=== PATIENT | male | born 1950 | race Caucasian/White ===

== ENCOUNTER 2023-10-01 10:40 | Day surgery (SDC) | payer OTHER, SELFPAY ==
[2023-10-01] VITALS (11 sets, daily range): BP systolic 111–165; BP diastolic 43–94; BMI 20.7
[2023-10-01] MEDS: NSS 196 ML IV (11:47)
--- NOTE | 2023-10-01 13:18 | ITS.CL.CATH ---
Pharmacy Resource Tech - Catheterization
Cardiac Catheterization
Procedure Report:
CARDIAC CATHETERIZATION REPORT
Date of Procedure: 10/01/2023
Referring: Albino Acuña DO
Indication: Symptomatic severe aortic stenosis
HEMODYNAMIC DATA
AO: 141/53
LV: 195/14
There is a mean gradient of 54 mmHg across the aortic valve
LEFT VENTRICULOGRAPHY: Not performed
CORONARY ANGIOGRAPHY
Dominance: Right
Left Main: Normal
LAD: Normal
Circumflex: A large ramus intermedius branch is normal. The circumflex is angiographically normal
RCA: Mild luminal irregularities
Closure Device: None-the procedure was performed via the right radial artery. The Ismael's test was normal prior to the procedure.
Radiation (mGy): 186
DAP (cm2.Gy): 18.5
Fluoroscopy time: 3.9 minutes
CONCLUSIONS
1: Severe aortic stenosis with mean gradient 54 mmHg
2: Normal coronary arteries
3. Proceed with TAVR evaluation for symptomatic severe aortic stenosis
Copy to: Albino Acuña DO, Maria Martínez DO
Cliff Reece MD, FACC, [facility]
--- NOTE | 2023-10-01 15:26 | CONSULT.STRU ---
Consultation
-
Date/Time Consultation Requested: 10/01/2023 1300
Date/Time Consultation Performed: 10/01/2023 1400
Requesting Provider: Dr. Cliff Reece
Performing Provider: AKI Gerber
Reason for Consultation: Aortic stenosis/TAVR evaluation
Patient History
Physicians
Family Physician: Dr. Maria Martínez
Outpatient [employer] Combination Teacher: Dr. Albino Acuña
Primary High School Combination Teacher: Dr. Albino Acuña
History of Present Illness
Mr. Lozano is a very pleasant 73 yo male referred for evaluation of severe and evaluation for TAVR. Recent ECHO showed normal LV function with EF 60-65%, severe with mean gradient 47mm Hg, SUJIT 0.8cm2, mild to moderate AI and mild to moderate
MR. DVI 0.2 and PSV 4.5m/s.�At baseline, he has noted exertional fatigue clearly increasing over the past 12 months. Does not get dyspneic per se. Denies CP, palpitations, orthopnea or syncope. He likes to play golf and does so with a cart one day
per week. He occasionally walks up to one mile and has noted this is a bit more difficult for him over past 6-12 months.
Reviewed the pathophysiology of aortic stenosis with the patient and his daughter, Rosalva. Explained the treatment options of SAVR and TAVR. Explained the TAVR evaluation process including follow up BMP, CT TAVR scan, CT surgery consult and Heart
Team discussion. Provided with script for BMP next week, script and appointment for CT TAVR, Consult appointment with Dr. Kinney and a copy of the TAVR education booklet with contact information. Allowed for and answered questions.
Past Medical History
Past Medical History: HTN, Valvular Disease (Aortic stenosis) and Other (glaucoma, hiatal hernia, COVID 2021-hospitalized 6 days )
Past Surgical History
Past Surgical History: Other (Right inguinal hernia repair(age 11), bilateral hand surgery)
Dental History
Full Dentures
Family History
Mother: at Age (44) and Cause of (unsure)
Father: at Age (62) and Cause of (probable [place])
Social History
Alcohol: Occasional (Beer 2-3x/week)
Drug: None
Tobacco: Former Smoker (Quit May 2021)
Personal:
Living: Alone
Employment: Retired
Allergies
Allergy/AdvReac Type Severity Reaction Status Date / Time
No Known Allergies Allergy Verified 10/01/23 11:48
Home Medications
�Medication �Instructions �Recorded �Confirmed �Type
amlodipine 5 mg tablet 5 mg PO BID 10/01/23 10/01/23 History
aspirin 81 mg tablet,delayed 81 mg PO DAILY 10/01/23 10/01/23 History
release
latanoprost 0.005 % eye drops 1 drp ophthalmic (eye) QPM 10/01/23 10/01/23 History
lisinopril 20 mg tablet 20 mg PO BID 10/01/23 10/01/23 History
metoprolol succinate 25 mg 25 mg PO DAILY 10/01/23 10/01/23 History
tablet,extended release 24 hr
multivitamin 1 tab PO DAILY 10/01/23 10/01/23 History
omega-3 fatty acids-fish oil 684 1 cap PO DAILY 10/01/23 10/01/23 History
mg-1,200 mg capsule,delayed release
omeprazole 20 mg tablet,delayed 20 mg PO DAILY 10/01/23 10/01/23 History
release
STS%
STS %: 0.625%
Review of Systems
-
History Source: Patient
General: Reports Fatigue; Denies Fever or Weight Gain
HEENT: Reports No Symptoms
Respiratory: Reports No Symptoms; Denies SOB, VARELA or Cough
Cardiac: Reports No Symptoms; Denies Chest Pain or Palpitations
Abdomen/GI: Reports No Symptoms; Denies Abdominal Pain, Nausea, Diarrhea or Constipation
: Reports No Symptoms
Musculoskeletal: Reports No Symptoms
Skin: Reports No Symptoms
Neurological: Reports No Symptoms; Denies CVA, TIA, Headaches or Syncope
Vascular: Reports No Symptoms
Physical Exam
Vital Signs
Temp 98.2 F 10/01/23 11:11
Temp route: Oral 10/01/23 11:11
Pulse 56 10/01/23 15:00
Resp Rate 16 10/01/23 15:00
Blood pressure 113/66 10/01/23 14:57
Blood pressure extremity used: Left upper arm 10/01/23 15:00
Position: Lying 10/01/23 15:00
MAP (cuff-Mckinley Monitor) 72 10/01/23 14:57
SaO2 96 10/01/23 15:00
Oxygen Mode of Delivery Room air 10/01/23 15:00
Can the patient verbally communicate their pain? Yes 10/01/23 15:00
Actual Weight 65.3 kg 10/01/23 11:10
Body Mass Index (BMI) 20.7 10/01/23 11:10
Labs
09/23/2023
GFR >60
BUN/Creat: 8/0.8
Na: 90- Dr. Acuña is following per patient
H/H: 13.4/37.8
Diagnostic Studies
06/14/2023 Echocardiogram at [facility]:
Mitral Valve: Significant MAC, mild MR
Aortic Valve: PG/M/47mmHg, SUJIT: 0.78cm2, peak velocity 4.5m/sec, dimensionless index is 0.2. Mild to moderate MR.
Tricuspid Valve: Normal
EF 60-65%, Diastolic dysfunction Stage 1
10/01/2023 Cardiac Catheterization:
HEMODYNAMIC DATA
AO: 141/53
LV: 195/14
There is a mean gradient of 54 mmHg across the aortic valve
LEFT VENTRICULOGRAPHY: Not performed
CORONARY ANGIOGRAPHY
Dominance: Right
Left Main: Normal
LAD: Normal
Circumflex: A large ramus intermedius branch is normal. The circumflex is angiographically normal
RCA: Mild luminal irregularities
Closure Device: None-the procedure was performed via the right radial artery. The Ismael's test was normal prior to the procedure.
Radiation (mGy): 186
DAP (cm2.Gy): 18.5
Fluoroscopy time: 3.9 minutes
CONCLUSIONS
1: Severe aortic stenosis with mean gradient 54 mmHg
2: Normal coronary arteries
3. Proceed with TAVR evaluation for symptomatic severe aortic stenosis
Exam
General: Well Developed, Well Nourished, No Apparent Distress and Comfortable
HEENT: Normocephalic, Moist Mucous Membranes and PERRLA
Neck: Trachea Midline
Respiratory: Clear; Negative Wheezes, Crackles or Rhonchi
Cardiac: S1/S2, Regular Rhythm and Murmur (Grade II-III/)
GI: Soft, Non Tender, Non Distended and Normal Bowel Sounds
Rectal: Deferred by Provider
Skin: Warm and Dry
Neuro: AO x 3 and No Motor Deficits
Extremities: Pulses (+2 bilateral DP/PT pulses); Negative Lower Level Edema
Lymph: No Lymphadenopathy
Psych: Calm
Assessment / Plan
-
Procedure Type:�Isolated AVR
PERIOPERATIVE OUTCOME ESTIMATE %
Operative Mortality 0.625%
Morbidity & Mortality 4.85%
Stroke 1.05%
Renal Failure 0.622%
Reoperation 3.66%
Prolonged Ventilation 1.54%
Deep Sternal Wound Infection 0.025%
Long Hospital Stay (>14 days) 1.88%
Short Hospital Stay (<6 days)* 68.6%
Severe Aortic stenosis:
��������������� Continue evaluation for TAVR as an outpatient
��������������� BMP 10/07/2023 at [facility]
��������������� CT TAVR scan 10/11/2023 at 0930 at
��������������� CT surgery consult with Dr. Kinney 10/13/2023 at 0900
��������������� Heart team discussion at [facility]
Full dentures- no dental clearance required
Data Reviewed
-
EKG: Report Reviewed by me (09/02/2023 NSR, 86bpm)
Presentation Team Member: Report Reviewed by me and Discussed with Physician
Echo: Report Reviewed by me
Labs: Labs Reviewed by me
Old Records: Reviewed (Echo report from [facility], consult note from Dr. Acuña and Dr. Reece)
Total Time Spent with Patient (in minutes): 45
== END 2023-10-01 16:10 | disposition home or self-care (01) ==
LOC: CATH 10:40
PROVIDERS: ATTENDING PHYSICIAN Internal Medicine Cardiovascular Disease; FAMILY PHYSICIAN Family Medicine; OTHER PHYSICIAN Internal Medicine Cardiovascular Disease
DX: I35.0 Nonrheumatic aortic (valve) stenosis (principal); R53.83 Other fatigue; I10 Essential (primary) hypertension; Z87.891 Personal history of nicotine dependence; Z79.82 Long term (current) use of aspirin
CPT/HCPCS: 93458; C1894; Q9967

== ENCOUNTER → 2023-10-11 09:04 | Outpatient (REF) | payer OTHER, SELFPAY | LOC: RAD 09:04 | PROVIDERS: ATTENDING PHYSICIAN Nurse Practitioner Adult Health; FAMILY PHYSICIAN Family Medicine | DX: I35.0 Nonrheumatic aortic (valve) stenosis (principal) | CPT/HCPCS: 74174; 75572; Q9967 ==

== ENCOUNTER 2023-10-28 05:14 | Inpatient (IN) | payer OTHER, SELFPAY ==
[2023-10-21 12:22] VITALS: BMI 20.6
[2023-10-21 12:50] LABS: % Basophils 0.7 % (0-2); % Immature Granulocytes 0.5 % (0-0.5); % Lymphocytes 15.8 % (20.5-51.1); % Monocytes 8.7 % (1.7-9.3); % Neutrophils 73.3 % (42.2-75.2); Absolute Basophils 0.1 10^3/uL (0-0.2); Absolute Eosinophils 0.1 10^3/uL (0-0.7); Absolute Immature Granulocytes 0.1 10^3/uL (0-0.05); Absolute Lymphocytes 1.8 10^3/uL (1.2-3.4); Absolute Neutrophils 8.2 10^3/uL (1.4-6.5); Hematocrit 39.2 % (39.0-52.0); Hemoglobin 14.1 g/dL (13.0-18.0); Mean Corpuscular Volume 89.1 fL (80.0-94.0); Mean Platelet Volume 9.8 fL (7.4-10.4); Nucleated Red Blood Cells % 0 % (-); Platelet Count 258 10^3/uL (130-400); Red Cell Dist. Width 11.7 % (11.5-14.5); White Blood Cell Count 11.2 10^3/uL (4.8-10.8)
[2023-10-21 12:55] LABS: INR 0.99; PT 13.1 Sec (11.4-14.6)
[2023-10-21 12:56] LABS: APTT 28.7 Sec (23.4-35.0)
[2023-10-21 13:04] LABS: Urine Albumin Negative (Neg - Trace); Urine Bilirubin Negative (Negative); Urine Character Clear (Clear); Urine Color Yellow; Urine Glucose Negative (Negative); Urine Ketone Negative (Negative); Urine Leukocyte Negative (Negative); Urine Nitrite Negative (Negative); Urine Occult Blood Negative (Negative); Urine Urobilinogen Negative (Neg - 1+)
[2023-10-21 13:05] LABS: ALT (SGPT) 21 U/L (0-50); AST (SGOT) 34 U/L (17-59); Albumin 4.9 g/dl (3.5-5.0); Alkaline Phosphatase 98 U/L (38-126); Blood Urea Nitrogen 7 mg/dl (9-20); Calcium 9.7 mg/dl (8.4-10.2); Carbon Dioxide 25 mmol/L (22-30); Chloride 91 mmol/L (98-107); Direct Bilirubin 0.4 mg/dl (0.0-0.4); Estimated Creatinine Clearance 102 ml/min; Glucose 94 mg/dl (70-99); Potassium 4.4 mmol/L (3.5-5.1); Sodium 127 mmol/L (135-145); Total Bilirubin 1.3 mg/dl (0.2-1.3); Total Protein 7.9 g/dl (6.3-8.2); eGFR > 60.00
[2023-10-21 13:14] LABS: NT-proBNP 823 pg/ml
--- NOTE | 2023-10-21 14:08 | CM ---
Met with Mr. Lozano in [facility]. He states prior to admission alone in a two story home with one step to enter. He states he has a full flight of steps to get to bedroom/full bathroom. He states he has a powder room on the first floor. He states prior
to admission he was independent with ambulation and adls. He states prior to admission he was independent with ambulation and adls. He states he has a BP Monitor at home. He states he has a prescription plan with [employer] and uses mail order and
[facility]. He states he has neighbors that will check in on him when he goes home. The discharge plan is to return home with a home visit by the Cardiothoracic Transitional Care Nurse when medically stable.
We reviewed pre-op and post-op routines. We reviewed the shower instructions. He has the soap, written instructions and the TAVR Educational Booklet. We also reviewed restrictions including lifting and driving restrictions. We discussed a home
visit by the Cardiothoracic Transitional Care Nurse. He is agreeable to a home visit. The plan is for TAVR on October.
[2023-10-21 14:37] LABS: Glycohemoglobin (HgbA1c) 5.1 % (4.0-5.6)
[2023-10-28] VITALS (20 sets, daily range): BP systolic 107–178; BP diastolic 58–100; BMI 19.8
--- NOTE | 2023-10-28 05:55 | PTCARENOTE ---
Pt admitted into 2257 for TAVR. He is AAOx3. Reports full upper and lower dentures he is going to remove before going to cath lab radiology technician. Neuro checks WNL- strength equal b/l arms and legs. pupils (2) equal round and reactive to light. Ambulates without
issues or assistive device. states he has not fallen- but has tripped and scrapped his R vance on his slider door entering the house recently- Wound: dime sized & open to air- no drainage noted. Plan of care discussed. R and L arm BP completed and
documented. strip placed in chart- and medications on chart to be sent to lab. SHARRI at bedside.
[2023-10-28] MEDS: ANCEF 10 IV ×2 (06:00→07:00)
--- NOTE | 2023-10-28 06:24 | W.CVOR.SURPR ---
CVOR Surgeon Immed Pre Op
-
I have examined this patient prior to performance of the scheduled procedure.
The patient's condition is unchanged from the time of the dictated/written History and
Physical and the patient is able to undergo the scheduled procedure.
TF TAVR
Full Rescue
[2023-10-28 08:11] LABS: ACT-LR - POC 290 Seconds (116-155)
--- NOTE | 2023-10-28 08:35 | W.PN.UPDATE ---
Update Note
Progress Note Update
Reviewed Mr. Lozano with the heart team in the preTAVR SDM meeting and confirmed a 26mm Lam Resilia via (L) TF access. Patient will resume aspirin post TAVR. LVEDP 27 mmHg. #26mm Resilia (SN [id number]) successfully deployed via left transfemoral
access. Post implant MG 3 mmHg.
--- NOTE | 2023-10-28 08:44 | W.PN.CT.SURG ---
CT Surgery Operative Note
-
OPERATIVE REPORT
Preoperative Diagnosis: Severe aortic valve stenosis, symptomatic
Postoperative Diagnosis: Same
Procedure(s) Performed: Left trans femoral TAVR with a 26mm Oliva TAVR valve
Date of Procedure: 10/28/2023
Comorbidities:
1. Severe aortic stenosis, symptomatic
2. Acute on chronic systolic and diastolic congestive heart failure, LVEDP 27 pre-TAVR
3. Hypertension
4. Hyperlipidemia
5. History of tobacco abuse
6. BPH
7. Glaucoma
8. Gout
9. Mild MR/mild TR
10. Peripheral vascular disease
Cardiac Surgeon: Alex Kinney MD, MS
Finisher Polisher: Mauro Reece MD
Anesthesia: Conscious Sedation and Local Analgesia
EBL: 100cc
Products: none
Implant: 26mm OLIVA RESILIA RIVKA ULTRA TAVR VALVE, SN: [id number]
Indication(s) for Procedures: 73-year-old male with symptomatic severe aortic stenosis. CT-TAVR protocol revealed acceptable anatomy for TAVR access and implantation. Due to his peripheral vascular disease involving bilateral common iliacs, we had
shockwave therapy available in the room should it be needed.
Start time: 0734hrs
Deployment time: 0813hrs
End time: 0828hrs
Radiation Dose (mGy): 169.37
DAP (cm2.Gy): 20.0372
Fluoroscopy time (minutes): 9.6
Contrast volume (ml): 71
TAVR gradient (mmHg): 3mmHg
Heparin Dose: 6000units
Protamine Dose: 30mg
Final Valve Positionin/20
LVEDP (mmHg): 27
Findings: Preoperative LVEF was 60% and was 60% following TAVR without inotropic support. Function was overall normal without regional wall motion abnormalities or dyskinesia. The aortic valve was well seated without detectable PVL and mean gradient
across the new valve was 3mmHg. following deployment of the TAVR valve and cessation of rapid pacing the patient returned to sinus while on the recyclable products sorter table. There was successful placement of 26 mm Resilia TAVR valve without acute complications.
Of note, his LVEDP pre-Deployment was 27 mmHg indicating acute on chronic systolic and diastolic congestive heart failure with volume overload. Lasix will be given in the ICU.
Access:
1. Device -left common femoral artery, perclose x 2 + 8Fr angioseal
2. Pigtail -right common femoral artery + 6Fr angioseal
3. Transvenous Pacer -right common femoral vein
Description of Procedure: The patient was taken to the recyclable products sorter. Their identity and procedure to be performed were verified and they were positioned supine on the recyclable products sorter table. Induction via conscious sedation. The patient was then prepped and
draped from chin to thigh in a sterile fashion. A preoperative time-out was performed with all members of the team present. Arterial and venous access was performed using fluoroscopy with micropuncture and Seldinger technique. Angiography was
performed and found to left common femoral and iliac systems were appropriate for attempting TAVR without getting shockwave therapy. Two perclose devices were used on the device side followed by access to the aorta with a stiff wire to facilitate
E-sheath placement with predilation using a 16 Mexican dilator and lubrication using propofol. Heparin was given. A stiff straight wire and AL-1 catheter was used to cross the aortic valve. An LVEDP was measured here. The stiff wire was exchanged
for an extra stiff coiled tip wire. The valve was prepped and mounted on to the device carrier. An ACT of >250 was achieved. We verified x 3 that the valve was mounted in the correct orientation with the skirt of the valve directed toward the tip of
the device carrier. We advanced the device into the descending thoracic aorta where the valve was them mounted onto the balloon under fluoroscopy. The device was flexed and advanced over the arch into the root and positioned across the aortic valve.
Contrast fluoroscopy was used to visualize the prosthesis across the valve and to guide positioning. A pigtail catheter in the RCC as used as a guide. We aimed to have the bottom of the device marker at the annular hinge point. The device sheath was
pulled back. We performed a quick pre-deployment time out. The pacer was turned on and had capture. Blood pressure fell accordingly, angiography was done to verify the intended final placement and the valve was deployed with 5 seconds of rapid
pacing to nominal volume. The balloon was deflated and the pacer was turned off. We had recovery of vitals. The device carrier was unflexed and positioned back in the descending thoracic aorta. A transthoracic echocardiogram was performed. The
device was removed from the E-Sheath maintaining wire access followed by removal of the E-sheath as we cinched down the perclose devices. There is still some bruising required 8 Mexican Angio-Seal to be placed. There was acceptable hemostasis
thereafter. The pigtail was withdrawn into the descending/abdominal and completion aortogram with runoff run-off angiography was performed. There was no stenosis or dissection of bilateral iliofemoral systems. There was acceptable hemostasis of
bilateral groins and manual pressure was held following wire removal. Low dose protamine was administered after checking another ACT.
All instrument, sponge, and needle counts were confirmed to be correct x 2 at the end of the operation. The patient was transferred to the cardiac intensive care unit in stable condition.
I, Dr. Alex Kinney, was present, scrubbed for, and performed all critical elements of this procedure.
Alex Kinney MD
Cardiothoracic Surgeon
[facility]
This operative dictation was created using the [email or web address] dictation system. Please excuse any grammatical, typographical, or 'sound alike' errors
--- NOTE | 2023-10-28 09:28 | ITS.CL.TAVR ---
Shared Services And Outsourcing Manager - TAVR Report
TAVR PRocedure
Procedure Report:
TRANSCATHETER AORTIC VALVE REPLACEMENT REPORT
Date: 10/28/2023
Referring physician: Albino Acuña DO
Operators:
employment evaluator/case manager: Cliff Reece MD
Cardiac surgeon: Alex Kinney MD
Procedure:
Conscious sedation was provided by anesthesia. Using a micropuncture technique, 6F sheaths were placed in the RFA and RFV. A transvenous pacemaker was advanced to the RV and excellent thresholds obtained. A pigtail catheter was advanced to the
aortic root where low volume injections were performed to identify an appropriate angle for valve deployment. Access was then obtained in the left femoral artery using a micropuncture technique. A 6Fsheath was placed and angiography confirmed a ENVIRONMENTAL QUALITY ANALYST
puncture site. Angiography of the iliofemoral system was performed as the external iliac artery diameter by CTA was borderline at 5.4-5.6 mm. We felt that we would not require shockwave IVL to prepare the vessel. Heparin 3000 units was
administered. Two perclose sutures were preset using the preclose technique. An 8F sheath was placed in the LFA and an Amplatz super stiff wire advanced into the thoracic aorta. The ileofemoral vessels were dilated using the Lam 16 F dilator. A
14 F Lam E sheath was advanced into the descending thoracic aorta. We then ran the 16 F dilator through the 14 F sheath using propofol for lubrication to maximize the likelihood of successfully passing the stent delivery system through the
external iliac artery. Additional heparin 3000 units was administered. The valve was crossed using a diagnostic 6F AL1 catheter and a straight wire. An Amplatz extra stiff wire with a homemade curve was placed in the LV apex. Balloon aortic
valvuloplasty was not performed.
An Lam 26 mm Carl S3 valve was then advanced through the E sheath and prepared for transit around the aortic arch. The valve was carefully advanced across the aortic annulus and deployed during rapid ventricular pacing. Echocardiography and
aortography confirmed an excellent result with mean gradient 3 mmHg and no AI. The valve deployment system was removed. The Lam E sheath was then removed and hemostasis obtained with the two perclose sutures and an 8 Italian Angio-Seal. Final
angiography demonstrated no evidence of ileofemoral dissection/perforation and good runoff below the common femoral artery. The pacemaker was removed and the RFV sheath removed with manual compression. The RFA sheath was removed using a 6 F
angioseal.
Radiation (mGy): 169
DAP (cm2.Gy): 20.0
Fluoroscopy time: 9.6 minutes
Conclusions: Successful placement of 26 mm Carl S3 aortic valve via left transfemoral approach with no acute complications.
Copy to: Albino Acuña DO, Maria Martínez MD
--- NOTE | 2023-10-28 10:00 | PTCARENOTE ---
Patient received post TAVR in bed with head elevated to 30 degrees. Sinus manda on monitor. VSS. Patient awake alert and oriented, neuro assessment within normal limits. B/L femoral dressings clean dry and intact.
[2023-10-28] MEDS: LASIX 40 MG IV (11:19)
--- NOTE | 2023-10-28 11:32 | CM ---
Patient in OR today for planned TAVR.
Reviewed initial assessment. Pt. comes from a private home alone. He is functionally indep. with ADLs, mobility prior to admission.
Anticipate DC to home w/ CT Transitional Care RN.
CM to follow.
[2023-10-28] MEDS: ASPIR LOW (ENTERIC COATED) PO (12:19)
[2023-10-28 12:20] LABS: ACT-LR - POC > 397 Seconds (116-155)
[2023-10-28] MEDS: PROTONIX 40 MG PO (13:42)
[2023-10-28] MEDS: THERAGRAN 1 TABLET PO (13:42)
[2023-10-28] MEDS: ANCEF 5 IV (13:43)
[2023-10-28] MEDS: XALATAN OPHTHALMIC SOLUTION 1 DROP OPHTH (19:24)
[2023-10-28] MEDS: LOPRESSOR 12.5 MG PO (19:24)
[2023-10-28] MEDS: LOPRESSOR PO (21:29)
--- NOTE | 2023-10-29 | PTCARENOTE ---
Patient AO x3, [facility], has a low grade fever 100.1, now 97.8. Voided small amounts in the urinal. Bladder scan for 368 at 1930 and bladder scanned again for less than 268 at hs. Left groin site had old drainage on the dressing. Right is CDI. Pedal
pulses intact. SR with a 1st degree in the 80's, using call key for assistance
[2023-10-29 03:01] VITALS: BP 150/78
[2023-10-29 03:27] VITALS: BMI 19.2
[2023-10-29 04:16] LABS: Hematocrit 34.3 % (39.0-52.0); Hemoglobin 12.7 g/dL (13.0-18.0); Mean Corpuscular Hgb 32.5 pg (27.0-31.0); Mean Corpuscular Volume 87.7 fL (80.0-94.0); Mean Platelet Volume 9.9 fL (7.4-10.4); Platelet Count 177 10^3/uL (130-400); Red Blood Cell Count 3.91 10^6/uL (4.70-6.10); Red Cell Dist. Width 11.8 % (11.5-14.5); White Blood Cell Count 14.2 10^3/uL (4.8-10.8)
[2023-10-29 04:43] LABS: Blood Urea Nitrogen 9 mg/dl (9-20); Calcium 9.5 mg/dl (8.4-10.2); Carbon Dioxide 23 mmol/L (22-30); Chloride 95 mmol/L (98-107); Estimated Creatinine Clearance 82 ml/min; Glucose 101 mg/dl (70-99); Sodium 130 mmol/L (135-145); eGFR > 60.00
--- NOTE | 2023-10-29 04:44 | W.PN.CT ---
Today's Communication / Plan
-
-check Echo
-review EKG with cardiology
-restart home meds (metoprolol started last night for tachycardia (120's)
-ASA only for TAVR
-discharge planning
Assessment / Plan
-
s/p Left trans femoral TAVR with a 26mm Lam TAVR valve POD#1
-Aortic stenosis
-HTN
-Hiatal hernia
-BPH
-Glaucoma
-Gout
-h/o tobacco abuses/p inguinal hernia repair
Subjective
Procedure
s/p Left trans femoral TAVR with a 26mm Lam TAVR valve by Dr. Kinney on 10/28/23
-
Date of Service: October 29, 2023
Objective Data
-
Lab Results
10/29/23 03:19
10/29/23 03:19
PT 13.1 Sec (11.4-14.6) 10/21/23 11:52
INR 0.99 10/21/23 11:52
APTT 28.7 Sec (23.4-35.0) 10/21/23 11:52
Vital Signs
Vital Signs
Temp Pulse Resp BP Pulse Ox
97.8 F 79 20 144/84 95
10/28/23 23:14 10/28/23 22:00 10/28/23 23:14 10/28/23 21:54 10/28/23 23:14
CT Intake/Output/Weight
10/28/23 10/28/23 10/29/23
06:59 18:59 06:59
Intake Total 2280 / 2280
Output Total 2625 / 3225 600 / 3225
Balance -345 / -945 -600 / -945
SaO2: 95
Physical Exam
-
General: AOx3
Cardiovascular: Regular rate & rhythm
Respiratory: Clear
Incision: Clean, Dry, Intact and Other (groins soft without hematoma)
Extremities: No Edema
[2023-10-29 07:34] VITALS: BP 149/95
--- NOTE | 2023-10-29 09:11 | PN.CDI ---
Addendum entered and electronically signed by Rishabh Tello PA-C 10/29/23 13:24:
Pt with hyponatremia seen on am labs
Original Note:
CDI
- -
CDI:
Physician Documentation Request
Admit Date: 10/28/23 05:14
Dear Doctor Gregoria,
Please review the following and provide your response in the progress notes.
Clinical Indicators:
Pt admitted with severe aortic stenosis
10/28/23 TAVR
Laboratory Tests
10/21/23 10/29/23
11:52 03:19
Sodium 127 L 130 L
Based on the above, could you please clarify in the progress notes, the appropriate diagnosis, if significant, that supports the above abnormalities and additional evaluation, monitoring and/or treatment rendered:
Hyponatremia
Insignificant abnormal lab values
Other
Use of terms such as suspected, likely, concern for, or probable (associated with a specific diagnosis that is being evaluated, monitored, or treated as if it exists) are acceptable and can be coded in the inpatient setting, when documented at the
time of discharge.
Thank you,
Chikis Mcgraw RN, BSN
CDI Specialist
Available via [place] [employer]
Please use your independent medical judgment in providing your response.
[2023-10-29] MEDS: NORVASC 5 MG PO (09:27)
[2023-10-29] MEDS: PROTONIX 40 MG PO (09:27)
[2023-10-29] MEDS: ASPIR LOW (ENTERIC COATED) 81 MG PO (09:27)
[2023-10-29] MEDS: THERAGRAN 1 TABLET PO (09:27)
[2023-10-29] MEDS: TOPROL XL 25 MG PO (09:28)
[2023-10-29] MEDS: FLUSH (NSS) 1 FLUSH IV (09:28)
[2023-10-29] MEDS: ZESTRIL 20 MG PO (09:28)
[2023-10-29] MEDS: LOPRESSOR PO (09:36)
--- NOTE | 2023-10-29 10:53 | PTCARENOTE ---
Received patient this morning sitting oob in the chair. Dressing left groin with old drainage remains unchanged. Dressing right groin is dry and intact. VS and neuro status within normal limits. Patient anxiously awaiting echo and hoping to be
discharged later.Call shahid in reach, instructed to call for assistance when getting oob.
[2023-10-29 11:33] VITALS: BP 147/76
[2023-10-29 11:39] VITALS: BP 151/80
[2023-10-29 11:46] VITALS: BP 147/76; BP 151/80; PULSE 100; O2SAT 97; O2SAT 98
[2023-10-29 11:48] VITALS: BP 133/78
--- NOTE | 2023-10-29 12:09 | CM ---
CM following for DC planning needs.
Met w/ patient at bedside. He reports that he is feeling well. He is hopeful for DC today, has no concerns and has transport home.
Reviewed post op appointment and visit from CT Transitional Care RN. Pt. agreeable to this.
Plan: HOME w/ CT Transitional Care RN.
--- NOTE | 2023-10-29 12:29 | W.DCSUMMARY ---
Discharge Summary
Discharge Data
Date of Admission: 10/28/23
Date of Discharge: 10/29/23
-
Pending Results: No
Hospital Course
Primary care physician: Dr. Martínez
Outpatient guardian family member: Albino Acuña
Inpatient consultants: SCOTT/Shanell
Procedures:
1. 10/28/23 Left Transfemoral Transcatheter Aortic valve replacement with #26mm Lam valve by Drs. Alex Kinney & Mauro Reece
Primary Diagnosis:
1. severe symptomatic aortic stenosis
2. dyspnea on exertion
Secondary Diagnoses:
1. Acute on chronic systolic and diastolic congestive heart failure, LVEDP 27 pre-TAVR
2. Hypertension
3. Hyperlipidemia
4. History of tobacco abuse
5. BPH
6. Glaucoma
7. Gout
8. Mild MR/mild TR
9. Peripheral vascular disease
10. chronic hyponatremia
HPI: Patient is a 73-year-old male with worsening dyspnea on exertion noted to have severe aortic stenosis on echo with a mean gradient of 47 and aortic valve area of 0.8 cm�. He was referred for TAVR evaluation and after all preop workup was
completed he was deemed a suitable candidate to undergo the procedure.
Hospital course: He was brought in electively on 10/28/2023 where he underwent a left transfemoral TAVR with a #26 Lam valve without any periprocedural complications. His pre-TAVR LVEDP was elevated at 27 and was therefore given IV Lasix postop.
Postop EKG demonstrated sinus bradycardia. He remained hemodynamically stable and was resumed on aspirin. On postop day 1 his heart rate has improved to normal sinus, his home blood pressure medications have been resumed and he is tolerating
well. Follow-up echo demonstrated a mean gradient of 8 with no AI. Patient was discharged to home with close follow-up with the transitional care nurse and [facility] who will see him in a few days, no changes were made to his home
medications.
Home medication changes:
none, resume all home meds.
Discharge Plan
-
Patient Disposition: Home (Routine Discharge)
Discharge Diagnosis/Procedures: TF TAVR
Condition: Good
Diet: Low Fat, Low Cholesterol and 2 Gram Sodium
Activity: As tolerated
Driving Restrictions: No driving for 1 week
Bathing Restrictions: OK to Shower
Others Tests: Your 30-day follow up echocardiogram is scheduled for: 12/01/2023 @ 8:[address] Acuña's office
Other Services: Cardiac Rehab
Wound Care: No lotions, creams, or powders to puncture sites
Specialty Instructions: Weigh Daily- Call MD for wt gain/loss 3 lbs overnight/5 lbs in 1 week
Activity Restrictions/Additional Instructions:
Please call Cardiac Rehab to get scheduled.
[facility]: [phone]
Call with questions to : [phone]
Referrals:
CT Transitional Care Nurse [Outside]
Maria Martínez DO [Family Provider] -
Albino Acuña DO [Non-Admitting Privileges] - 12/07/23 11:00 am (Please note: This appointment is with AKI Matos)
Prescriptions:
New
acetaminophen 325 mg Tablet
650 mg PO Q6HPRN PRN (Reason: ALFARO, mild pain, or fever >101F) Qty: 0 0RF
Continued
multivitamin Tablet
1 tab PO DAILY
latanoprost 0.005 % Drops
1 drp OPHTHALMIC (EYE) QPM
Rx Instructions:
BOTH EYES
lisinopril 20 mg Tablet
20 mg PO BID
amlodipine 5 mg Tablet
5 mg PO BID
aspirin 81 mg Tablet,Delayed Release (Dr/Ec)
81 mg PO DAILY
metoprolol succinate 25 mg Tablet Extended Release 24 Hr
25 mg PO DAILY
omeprazole 20 mg Tablet,Delayed Release (Dr/Ec)
20 mg PO DAILY
omega-3 fatty acids-fish oil 684-1,200 mg Capsule,Delayed Release(Dr/Ec)
1 cap PO DAILY
Discharge Orders:
Discharge Patient (As Directed); Ordered 10/29/23
Ordered By: Gissell Del Castillo
Care Plan Goals
Care Plan Goals:
Problem: Readiness for enhanced knowledge related to diagnosis and treatment plan
Goal: Understand your diagnosis and treatment plan needs, including medications if applicable.
Instructions: Know your diagnosis, underlying causes and treatment plan options, including medications if applicable. Consult with your health care team to learn about your diagnosis and treatment plan, including medications if applicable.
Discharge Date and Time
Print Language: SAMMARINESE
--- NOTE | 2023-10-29 14:12 | W.PN.CD ---
Today's Communication / Plan
-
Home today
Impression / Plan
-
: Status post 26 mm RIVKA S3 TAVR yesterday. Neurologically intact. Hemodynamically stable. HCT 34.7. Renal function normal. Feels great. Telemetry unremarkable
Echo today shows mean gradient 8 mmHg with no AI
Stable for discharge. Outpatient follow-up with Dr. Acuña. Continue aspirin.
Hypertension: Stable. Continue outpatient medical regimen
Physical Exam
Vital Signs/Labs
Vital Signs
Temp Pulse Resp BP Pulse Ox
99.2 F 100 20 133/78 97
10/29/23 13:38 10/29/23 12:00 10/29/23 11:46 10/29/23 11:48 10/29/23 11:46
10/28/23 10/29/23 10/30/23
06:59 06:59 06:59
Actual Weight 137 lb 12.623 oz 134 lb 0.657 oz
10/29/23 03:19
10/29/23 03:19
PT 13.1 Sec (11.4-14.6) 10/21/23 11:52
INR 0.99 10/21/23 11:52
APTT 28.7 Sec (23.4-35.0) 10/21/23 11:52
10/21/23
11:52
Eri-W-Shhgzrazzak Pept 823
Physical Exam
Constitutional: No acute distress and Comfortable
EENT: Anicteric
Cardiovascular: Rhythm & rate is regular, S1S2 is normal and Murmur/rub/gallop absent
Respiratory: Respiratory effort normal and Lungs clear to auscul.
GI: Non tender
Neuro/Psych: AO x 3 and Motor deficits absent
Data Reviewed
-
Date of Service: October 29, 2023
== END 2023-10-29 14:31 | disposition home or self-care (01) | DRG 266 ==
LOC: IVU 05:14
PROVIDERS: Nurse Practitioner; ADMITTING PHYSICIAN Thoracic Surgery (Cardiothoracic Vascular Surgery); FAMILY PHYSICIAN Family Medicine; OTHER PHYSICIAN Internal Medicine Cardiovascular Disease
PROC: 02RF38Z Replacement of Aortic Valve with Zooplastic Tissue, Percutaneous Approach (ICD-10-PCS; 2023-10-28)
DX: I08.3 Combined rheumatic disorders of mitral, aortic and tricuspid valves (principal); I50.43 Acute on chronic combined systolic (congestive) and diastolic (congestive) heart failure; E87.1 Hypo-osmolality and hyponatremia; I11.0 Hypertensive heart disease with heart failure; E78.5 Hyperlipidemia, unspecified; R00.1 Bradycardia, unspecified; R00.0 Tachycardia, unspecified; N40.0 Benign prostatic hyperplasia without lower urinary tract symptoms; H40.9 Unspecified glaucoma; M10.9 Gout, unspecified; I73.9 Peripheral vascular disease, unspecified; Z87.891 Personal history of nicotine dependence; Z79.82 Long term (current) use of aspirin
CPT/HCPCS: 93308; 33361; 36415; 71045; 71046; 80048; 80053; 81003; 82248; 83036; 83880; 85025; 85027; 85347; 85610; 85730; 86850; 86900; 86901; 87070; 93005; 93306; 93321; 93325; C1760; C1769; C1894; Q9967

== ENCOUNTER → 2023-12-17 07:23 | Outpatient (REF) | payer OTHER, SELFPAY | LOC: PAVMRI 07:23 | PROVIDERS: ATTENDING PHYSICIAN Surgery; FAMILY PHYSICIAN Family Medicine | DX: N28.89 Other specified disorders of kidney and ureter (principal) | CPT/HCPCS: 74183; A9575 ==

== ENCOUNTER 2024-02-17 07:15 | Inpatient (IN) | payer OTHER, SELFPAY ==
[2024-02-07 07:25] VITALS: BMI 21.1
[2024-02-07 10:44] LABS: Hematocrit 35.6 % (39.0-52.0); Hemoglobin 13.3 g/dL (13.0-18.0); Mean Corp Hgb Conc. 37.4 g/dL (33.0-37.0); Mean Corpuscular Hgb 32.8 pg (27.0-31.0); Mean Corpuscular Volume 87.7 fL (80.0-94.0); Mean Platelet Volume 10.3 fL (7.4-10.4); Platelet Count 191 10^3/uL (130-400); Red Blood Cell Count 4.06 10^6/uL (4.70-6.10); Red Cell Dist. Width 11.3 % (11.5-14.5); White Blood Cell Count 6.6 10^3/uL (4.8-10.8)
[2024-02-07 11:15] LABS: Blood Urea Nitrogen 8 mg/dl (9-20); Calcium 9.7 mg/dl (8.4-10.2); Carbon Dioxide 22 mmol/L (22-30); Chloride 92 mmol/L (98-107); Estimated Creatinine Clearance 87 ml/min; Glucose 79 mg/dl (70-99); Potassium 4.6 mmol/L (3.5-5.1); Sodium 131 mmol/L (135-145); eGFR > 60.00
--- NOTE | 2024-02-14 14:57 | PTCARENOTE ---
Abn ECG, Dr. Durbin notified, no additional requests made.
[2024-02-17] VITALS (13 sets, daily range): BP systolic 141–167; BP diastolic 72–90; BMI 21.1
--- NOTE | 2024-02-17 09:07 | W.SUR.PREOP ---
Pre-Operative Surgical Note
-
I have examined this patient prior to the performance of the scheduled procedure.
The patient's condition is unchanged from the time of the current History and
Physical and the patient is able to undergo the scheduled procedure.
Left laterality marked.
Surgical consent signed.
To OR for laparoscopic left radical nephrectomy.
D/w patient and son in preop.
--- NOTE | 2024-02-17 12:35 | W.IMMPOSTOP ---
Surgical Immed Post Op Note
-
Primary Surgeon: Lisa
Assisting Surgeon: Soila
Pre-op Diagnosis: Left renal mass suspicious for RCC
Post-op Diagnosis: Same
Procedure Performed: laparoscopic (hand-assisted) left radical nephrectomy
Anesthesia Type: GETA, 20 cc local (marcaine/lidocaine w/o epinephrine)
Specimen / Cultures: Left kidney w/ Gerota's fascia
Estimated Blood Loss: 15 cc
Drains: 16Fr Tong catheter (10 cc in balloon)
Complications: None
Operative Findings:
No gross evidence of renal vein thrombus, extrarenal disease, or metastatic disease.
Excellent hemostasis on low pressure pneumoperitoneum.
Left kidney removed intact w/ Gerota's fascia.
--- NOTE | 2024-02-17 13:26 | SUR.PHASEI ---
Spoke with Dr. Gonzalez and will hold off on hanging IV fluids and generously add PO liquids. Will continue to monitor
--- NOTE | 2024-02-17 14:35 | PTCARENOTE ---
Patient admitted from [facility] post laparoscopic left radical nephrectomy.The patient rates his pain at a 3-4 out of 10.Vital signs are within normal limits.There is a Primaseal dressing on the left abdomen intact with scant drainage.There is also 2 lap
sites with glue one has a bandaid on it with scant drainage.The patient is in his bed with the call key in reach.
[2024-02-17] MEDS: NSS 1000 IV (14:48)
[2024-02-17] MEDS: ERYTHROMYCIN 0.5% OPHTHALMIC OINTMENT 1 APPLIC OPHTH ×2 (15:46→21:25)
[2024-02-17] MEDS: TYLENOL 650 MG PO ×2 (16:25→21:26)
[2024-02-17] MEDS: XALATAN OPHTHALMIC SOLUTION 1 DROP OPHTH (18:05)
[2024-02-17] MEDS: NORVASC 5 MG PO (20:05)
[2024-02-17] MEDS: ZESTRIL 20 MG PO (20:05)
[2024-02-18] MEDS: NSS 1000 IV (02:39)
[2024-02-18 03:00] VITALS: BP 155/77
[2024-02-18 05:45] LABS: % Basophils 0.1 % (0-2); % Immature Granulocytes 0.5 % (0-0.5); % Lymphocytes 4.3 % (20.5-51.1); % Monocytes 8.1 % (1.7-9.3); Absolute Immature Granulocytes 0.1 10^3/uL (0-0.05); Absolute Lymphocytes 0.6 10^3/uL (1.2-3.4); Absolute Neutrophils 11.1 10^3/uL (1.4-6.5); Hematocrit 32.3 % (39.0-52.0); Hemoglobin 12.1 g/dL (13.0-18.0); Mean Corp Hgb Conc. 37.5 g/dL (33.0-37.0); Mean Corpuscular Hgb 31.8 pg (27.0-31.0); Mean Corpuscular Volume 84.8 fL (80.0-94.0); Mean Platelet Volume 9.9 fL (7.4-10.4); Nucleated Red Blood Cells % 0 % (-); Platelet Count 157 10^3/uL (130-400); Red Blood Cell Count 3.81 10^6/uL (4.70-6.10); Red Cell Dist. Width 11.2 % (11.5-14.5); White Blood Cell Count 12.8 10^3/uL (4.8-10.8)
[2024-02-18 06:04] LABS: Blood Urea Nitrogen 11 mg/dl (9-20); Calcium 9.3 mg/dl (8.4-10.2); Carbon Dioxide 24 mmol/L (22-30); Chloride 94 mmol/L (98-107); Estimated Creatinine Clearance 56 ml/min; Glucose 118 mg/dl (70-99); Potassium 4.3 mmol/L (3.5-5.1); Sodium 132 mmol/L (135-145); eGFR > 60.00
--- NOTE | 2024-02-18 07:35 | W.PN.URO.CBU ---
Addendum entered and electronically signed by Corey Gonzalez MD 02/18/24 21:04:
Per CDI query - hyponatremia likely abnormal value of no clinical significance.
Patient s/p left radical nephrectomy w/ PO fluids administered post-op (no maintenance IVF) - asymptomatic hyponatremia secondary to fluid shifts and intravascular changes post-op.
Original Note:
Today's Communication / Plan
-
Voiding trial (Tong catheter removed @0600)
Regular diet
Bowel regimen
Analgesics prn (no NSAIDs)
Discharge home later today
Assessment / Plan
-
Left renal mass suspicious for RCC
02/16: s/p laparoscopic left radical nephrectomy
WBC mildly elevated s/p nephrectomy (expected post-op inflammatory changes)
Cr 1.1 (baseline 0.8)
Diagnosis
-
Date of Service: February 18, 2024
-
Patient Diagnosis:
Left renal mass suspicious for RCC
Post Op Day:
02/16: s/p laparoscopic left radical nephrectomy
Subjective
-
Left lower incision pain '2-3 out of 10.'
Requiring minimal opioid analgesics.
Passed gas @1AM this morning.
Eating breakfast this morning.
Objective
-
Vital Signs
Temp Pulse Resp BP Pulse Ox
98.9 F 87 18 150/68 98
02/18/24 07:42 02/18/24 07:42 02/18/24 07:42 02/18/24 07:42 02/18/24 07:42
Intake and Output
02/17/24 02/18/24 02/19/24
06:59 06:59 06:59
Intake Total 1590 / 1590
Output Total 1800 / 1800
Balance -210 / -210
Intake:
Oral fluids 240 / 240
IV fluids (Total) 1350 / 1350
normosol 100 / 100
Output:
Urine, Tong 1800 / 1800
Other:
Number of approximated MODERATE 2
amounts of urine
Laboratory Results
02/18/24 04:36
02/18/24 04:36
Physical Exam
-
General - well developed, well nourished, no acute distress
Abdomen - soft, non-tender, mildly tender over incisions, LLQ incision w/ minimal chavez-incisional ecchymoses - c/d/i (dressing removed)
Genitalia - normal
Skin - warm & dry with no rash
Neuro - AOx3, no motor deficits
Extremities - no clubbing, no cyanosis, no edema
Care Review
Data Reviewed
Discussed with: Nursing and Family
[2024-02-18 07:42] VITALS: BP 150/68
--- NOTE | 2024-02-18 08:09 | W.DS.TRANS ---
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
-
Discharge Instructions:
Sleep Apnea Risk Intermediate
Discharge Diagnosis/Procedures left renal mass s/p laparoscopic left radical
nephrectomy
Diet Regular
Activity No strenuous activity
Additional Activity No strenuous activity, exercise, or heavy
lifting x3-[address] Gonzalez
Driving Restrictions No driving for 24 hours
Bathing Restrictions OK to Shower
Wound Care OK to shower - no special dressing or wound care
required
Instructions:
Stand-Alone Forms:
Changes to Home Medications: No
Discharge Medications:
DC Medications w/original date entered in [facility]
amlodipine 5 mg tablet 5 mg PO BID Blood Pressure 10/01/23
aspirin 81 mg tablet,delayed release 81 mg PO DAILY Blood Clot Prevention/Tx 10/01/23
latanoprost 0.005 % eye drops 1 drp ophthalmic (eye) QPM Eye Condition 10/01/23
lisinopril 20 mg tablet 20 mg PO BID Blood Pressure 10/01/23
metoprolol succinate 25 mg tablet,extended release 24 hr 25 mg PO DAILY Heart Disease/Condition 10/01/23
multivitamin 1 tab PO DAILY Supplement 10/01/23
omega-3 fatty acids-fish oil 684 mg-1,200 mg capsule,delayed release 1 cap PO DAILY Supplement 10/01/23
omeprazole 20 mg tablet,delayed release 20 mg PO DAILY Gastrointestinal Issue 10/01/23
acetaminophen 300 mg-codeine 30 mg tablet 1 tab PO Q4H PRN moderate pain #20 tabs 02/18/24
docusate sodium 100 mg capsule (Colace) 100 mg PO BID PRN constipation 4 days #8 caps 02/18/24
Home Medication Changes
Pending Results: Yes
Additional Pending Results:
pathology
[2024-02-18] MEDS: THERAGRAN 1 TABLET PO (08:10)
[2024-02-18] MEDS: PROTONIX 40 MG PO (08:10)
[2024-02-18] MEDS: TOPROL XL 25 MG PO (08:10)
[2024-02-18] MEDS: NORVASC 5 MG PO (08:10)
[2024-02-18] MEDS: ZESTRIL 20 MG PO (08:10)
[2024-02-18] MEDS: MIRALAX 17 GRAMS PO (08:10)
[2024-02-18] MEDS: ERYTHROMYCIN 0.5% OPHTHALMIC OINTMENT 1 APPLIC OPHTH ×2 (08:11→12:51)
[2024-02-18 09:09] VITALS: BMI 19.9
[2024-02-18 11:26] VITALS: BP 171/96
[2024-02-18] MEDS: APRESOLINE 10 MG IV (11:40)
[2024-02-18 12:41] VITALS: BP 163/82
--- NOTE | 2024-02-18 12:59 | CM ---
Met with pt at bedside
Pt lives alone in a 2 story town house; no steps to enter, 13 steps to 2nd fl
Independent, retired
DME - none
SNF/HH - none
Has ride at discharge
PCP - Maria Martínez
Pharm - [facility]
Plans to stay with daughter for a few days prior to returning home
Discussed IMM
Plan - home no needs
--- NOTE | 2024-02-18 14:35 | PN.CDI ---
CDI
- -
CDI:
Physician Documentation Request
Admit Date: 02/17/24 07:15
Dear Doctor Lisa,
Clinical Indicators:
Patient admitted with left renal mass; s/p laparoscopic left radical nephrectomy.
IVF: Normosol + NSS maintenance
Sodium levels (pre admission and current):
02/07/24 02/18/24
0720 04:36
Sodium 131 L 132 L
Based on the above, could you clarify in the progress notes, the appropriate diagnosis, if significant, that supports the above lab abnormalities and additional evaluation, monitoring and/or treatment rendered:
Hyponatremia
Abnormal lab value, clinically insignificant
Other, please specify
Use of terms such as suspected, likely, concern for, or probable (associated with a specific diagnosis that is being evaluated, monitored, or treated as if it exists) are acceptable and can be coded in the inpatient setting, when documented at the
time of discharge.
Thank you,
Aby Alves RN BSN
CDI Specialist
available via tiger text
Please use your independent medical judgment in providing your response.
--- NOTE | 2024-02-18 15:00 | W.DCSUMMARY ---
Discharge Summary
Discharge Data
Date of Admission: 02/17/24
Date of Discharge: 02/18/24
Total time spent discharging patient (in min): 60
-
Pending Results: Yes
Additional Pending Results:
surgical pathology
Hospital Course
Mr. Lozano was admitted for routine post-op care on 02/17/24 after undergoing an uncomplicated laparoscopic left radical nephrectomy.
He was advanced to a regular diet and maintain on oral and IV pain medications for post-op analgesia.
Tong catheter was removed on the morning of POD#1 with a successful voiding trial.
Post-op labs on 02/18/24 were unremarkable.
After the patient was tolerating oral medications, diet, voiding, and ambulating independently, he was deemed clinically stable for discharge home.
Post-op care and instructions were reviewed in detail by the RN and myself prior to discharge home.
Discharge Plan
-
Patient Disposition: Home (Routine Discharge)
Discharge Diagnosis/Procedures: left renal mass s/p laparoscopic left radical nephrectomy
Condition: Good
Diet: Regular
Activity: No strenuous activity
Additional Activity: No strenuous activity, exercise, or heavy lifting x3-[address] Gonzalez
Driving Restrictions: No driving for 24 hours
Bathing Restrictions: OK to Shower
Wound Care: OK to shower - no special dressing or wound care required
Referrals:
Corey Gonzalez MD [Active] -
(You will be scheduled for a post-op visit with Dr. Gonzalez in 2-[address] Gonzalez will call you within 7-10 days once the pathology results are available. )
Maria Martínez DO [Family Provider] -
Prescriptions:
New
acetaminophen-codeine 300-30 mg tablet
1 tab PO Q4H PRN (Reason: moderate pain) Qty: 20 0RF
docusate sodium [Colace] 100 mg capsule
100 mg PO BID PRN (Reason: constipation) 4 Days Qty: 8 0RF
Continued
multivitamin Tablet
1 tab PO DAILY
latanoprost 0.005 % Drops
1 drp OPHTHALMIC (EYE) QPM
Rx Instructions:
BOTH EYES
lisinopril 20 mg Tablet
20 mg PO BID
amlodipine 5 mg Tablet
5 mg PO BID
metoprolol succinate 25 mg Tablet Extended Release 24 Hr
25 mg PO DAILY
omeprazole 20 mg Tablet,Delayed Release (Dr/Ec)
20 mg PO DAILY
omega-3 fatty acids-fish oil 684-1,200 mg Capsule,Delayed Release(Dr/Ec)
1 cap PO DAILY
Held
aspirin 81 mg Tablet,Delayed Release (Dr/Ec)
81 mg PO DAILY
Hold Instructions: Resume on 02/21/24.
Discharge Orders:
Discharge Patient (As Directed); Ordered 02/18/24
Ordered By: Corey Gonzalez
Discharge Date and Time
Discharge Date/Time: 02/18/24 16:29
Print Language: WALLISIAN
[2024-02-18 15:08] VITALS: BP 156/75
== END 2024-02-18 16:29 | disposition home or self-care (01) | DRG 661 ==
LOC: 2 SOUTH 07:15
PROVIDERS: ADMITTING PHYSICIAN Surgery; FAMILY PHYSICIAN Family Medicine
PROC: 0TT14ZG Resection of Left Kidney, Percutaneous Endoscopic Approach, Hand-Assisted (ICD-10-PCS; 2024-02-17)
DX: N28.89 Other specified disorders of kidney and ureter (principal); I10 Essential (primary) hypertension; I35.0 Nonrheumatic aortic (valve) stenosis; N40.1 Benign prostatic hyperplasia with lower urinary tract symptoms; R35.0 Frequency of micturition; K44.9 Diaphragmatic hernia without obstruction or gangrene; K59.00 Constipation, unspecified; Z79.82 Long term (current) use of aspirin; Z79.899 Other long term (current) drug therapy; Z87.891 Personal history of nicotine dependence; Z87.19 Personal history of other diseases of the digestive system; Z86.16 Personal history of COVID-19; Z82.49 Family history of ischemic heart disease and other diseases of the circulatory system
CPT/HCPCS: 88307; 36415; 80048; 85025; 85027; 86850; 86900; 86901; 86920; C1776

== ENCOUNTER → 2024-06-30 11:13 | Outpatient (REF) | payer OTHER, SELFPAY | LOC: PAVMRI 11:13 | PROVIDERS: ATTENDING PHYSICIAN Surgery; FAMILY PHYSICIAN Family Medicine; PRIMARYCARE PHYSICIAN Family Medicine | DX: C64.2 Malignant neoplasm of left kidney, except renal pelvis (principal) | CPT/HCPCS: 74183; A9575 ==

== ENCOUNTER → 2025-02-15 11:42 | Outpatient (REF) | payer OTHER, SELFPAY | LOC: PAVMRI 11:42 | PROVIDERS: ATTENDING PHYSICIAN Surgery | DX: C64.2 Malignant neoplasm of left kidney, except renal pelvis (principal) | CPT/HCPCS: 74183 ==

== ENCOUNTER → 2025-02-15 13:12 | Outpatient (REF) | payer OTHER, SELFPAY | LOC: RAD 13:12 | PROVIDERS: ATTENDING PHYSICIAN Surgery; FAMILY PHYSICIAN Family Medicine | DX: C64.2 Malignant neoplasm of left kidney, except renal pelvis (principal) | CPT/HCPCS: 71045 ==